=== PATIENT | female | born 1965 ===

== ENCOUNTER 2018-05-31 15:24 | Emergency (ER) | payer OTHER ==
[~2018-05-31] VITALS: Ht 172.7 cm; Wt 86.2 kg
[~2018-05-31 15:24] MED LIST: OXYC1TAB8 PO; SUMA100T4 PO; VENL225T PO
[2018-05-31 15:35] VITALS: BP 129/82
[2018-05-31] MEDS ORDERED: HYDROcodone/APAP 5/325 TABLET PO STA (16:06)
[2018-05-31] MEDS ORDERED: HYDROcodone/APAP 5/325 TABLET ONE (16:08)
[2018-05-31] MEDS ORDERED: KETOROLAC 30 MG/1 ML ONE (16:09)
[2018-05-31] MEDS ORDERED: KETOROLAC 60 MG/2 ML IM ONE (16:30)
== END 2018-05-31 17:28 | disposition home or self-care (01) ==
LOC: ED 17:20
DX: S43.52XA Sprain of left acromioclavicular joint, initial encounter (principal); Z87.891 Personal history of nicotine dependence; W19.XXXA Unspecified fall, initial encounter; Y93.89 Activity, other specified; Y92.009 Unspecified place in unspecified non-institutional (private) residence as the place of occurrence of the external cause; Y99.8 Other external cause status
CPT/HCPCS: 73030; 96372; 99284; J1885

== ENCOUNTER 2018-06-23 11:13 | Emergency (ER) | payer OTHER ==
[~2018-06-23] VITALS: Ht 172.7 cm; Wt 89.3 kg
[2018-06-23 11:22] VITALS: BP 125/71
[2018-06-23 12:04] LABS: BASOPHILS # (AUTO) 0.02 x10^3/uL (0-0.1); BASOPHILS % (AUTO) 0 % (0-1); EOSINOPHILS # (AUTO) 0.38 x10^3/uL (0-0.4); EOSINOPHILS % (AUTO) 7 % (1-7); LYMPHOCYTES % (AUTO) 13 % (22-44); MD NO; MEAN CORPUSCULAR HEMOGLOBIN 26.8 pg (27.0-34.8); MEAN CORPUSCULAR HGB CONC 33.2 g/dL (32.4-35.8); MEAN CORPUSCULAR VOLUME 80.7 fL (80-100); MEAN PLATELET VOLUME 6.4 fL (7.4-10.4); MONOCYTES % (AUTO) 9 % (2-9); NEUTROPHILS # (AUTO) 3.75 x10^3/uL (1.8-6.8); NEUTROPHILS % (AUTO) 70 % (42-75); PLATELET COUNT 412 x10^3/uL (130-400); RED CELL DISTRIBUTION WIDTH 15.9 % (9.6-15.2)
[2018-06-23 12:12] LABS: ALBUMIN 3.3 g/dL (3.4-5.0); ANION GAP 7 mmol/L (5-15); CALCIUM 8.2 mg/dL (8.5-10.1); CHLORIDE 105 mmol/L (98-107); CREATININE 0.68 mg/dL (0.55-1.02)
== END 2018-06-23 13:05 | disposition home or self-care (01) ==
LOC: ED 12:59
DX: L03.113 Cellulitis of right upper limb (principal)
CPT/HCPCS: 36415; 80048; 82040; 85025; 99285

== ENCOUNTER 2021-04-19 08:39 | Emergency (ER) | payer OTHER ==
[~2021-04-19] VITALS: Ht 170.2 cm; Wt 98.5 kg
--- NOTE | 2021-04-19 08:55 | NUR ---
EKG DONE IN TRIAGE.
--- NOTE | 2021-04-19 09:03 | NUR ---
WAS DRIVING WITH DAUGHTER AND HAD EYES ROLLING BACK AND WAS "OUT OF IT". SHES BEEN TALKING ABOUT UNRELATED THINGS, STATES NOT FEELING GOOD, AND ACTING OUT OF IT. HX STROKES HEART ATTACKS, HX OF THIS BUT USUALLY SNAPS OUT OF IT QUICKER ACCORDING TO DAUGHTER
--- NOTE | 2021-04-19 10:07 | NUR ---
PATIENT TALKING TO DAUGHTER SOFTLY. CALM IN BED RAILS UP
[2021-04-19 10:21] LABS: BASOPHILS % (AUTO) 1 % (0-1); EOSINOPHILS % (AUTO) 4 % (1-7); LYMPHOCYTES % (AUTO) 15 % (22-44); MEAN PLATELET VOLUME 7.3 fL (7.4-10.4); MONOCYTES % (AUTO) 10 % (2-9); NEUTROPHILS % (AUTO) 71 % (42-75); PLATELET COUNT 257 x10^3/uL (130-400); RED BLOOD COUNT 4.02 x10^6/uL (3.82-5.3); RED CELL DISTRIBUTION WIDTH 13.7 % (9.6-15.2)
[2021-04-19 10:32] LABS: ANION GAP 6 mmol/L (5-15); CALCIUM 8.7 mg/dL (8.5-10.1); CHLORIDE 110 mmol/L (98-107); CREATININE 0.48 mg/dL (0.55-1.02)
--- NOTE | 2021-04-19 10:56 | NUR ---
PATIENT HELPED TO BATHROOM. WALKS GOOD. PLACED IN TREADED SOCKS
[2021-04-19] MEDS ORDERED: METOCLOPRAMIDE 5 MG/ML, 2ML ONE (11:19)
[2021-04-19] MEDS ORDERED: KETOROLAC 60 MG/2 ML ONE (11:19)
[2021-04-19 11:22] VITALS: BP 100/64
[2021-04-19] MEDS ORDERED: METOCLOPRAMIDE 5 MG/ML, 2ML IM ONE (11:30)
[2021-04-19] MEDS ORDERED: KETOROLAC 30 MG/1 ML IM ONE (11:30)
== END 2021-04-19 11:32 | disposition home or self-care (01) ==
LOC: ED 11:25
DX: R55 Syncope and collapse (principal); G43.909 Migraine, unspecified, not intractable, without status migrainosus; R11.2 Nausea with vomiting, unspecified; I50.9 Heart failure, unspecified; I25.2 Old myocardial infarction; I48.91 Unspecified atrial fibrillation; F17.200 Nicotine dependence, unspecified, uncomplicated; Z90.49 Acquired absence of other specified parts of digestive tract
CPT/HCPCS: 36415; 70450; 80048; 85025; 93005; 96372; 99285; J1885; J2765